=== PATIENT | female | born 1935 | race Caucasian/White ===

== ENCOUNTER → 2018-01-31 | Outpatient (CLI) | payer MEDICARE ==
[2016-08-09 05:18] VITALS: BP 119/72
[~2018-01-31] MED LIST: ASPI-630 PO; BUME1TAB PO; BUPR100T8 PO; CHOL10003 PO; CYAN500T17 PO; CYCL2DRO5 OS; DEXT15DR5 OP; DICL100G18 TP; DOCU-109 PO; FAMO20TA5 PO; FLUT9.9S NS; GUAI600T47 PO; LEVO25TA4 PO; LEVO500T59 PO; LIDO700A4 TP; MAG355OR11 PO; MAGN2400 PO; MAGN400T3 PO; POLY2500 PO; PRED1DRO OS; SPIR25TA5 PO
--- NOTE | 2018-01-31 14:00 | CARD ---
MR#: [id number] Date of Study: 01/31/2018 Ordering Physician: PATRICIA FLORES, Referring Physician: PATRICIA FLORES, Tech: LETI Mckeon APPROVED REPORT EXAM: Two-dimensional and M-mode echocardiogram with Doppler and color Doppler. Other Information Quality : Fair INDICATION Hx- Mitral Valve Endocarditis 2D DIMENSIONS Left Atrium(2D)3.9 (1.6-4.0cm)IVSd0.9 (0.7-1.1cm) Aortic Root(2D)1.9 (2.0-3.7cm)LVDd4.2 (3.9-5.9cm) LVOT Diameter1.8 (1.8-2.4cm)PWd1.1 (0.7-1.1cm) LVDs1.7 (2.5-4.0cm)SV69.1 ml Aortic Valve AoV Peak Rey.164.2cm/Viviana Peak GR.10.8mmHg LVOT Peak Rey.102.4cm/sAVA (VMAX)1.65cm2 Mitral Valve MV E Aoehrixo782.6cm/sMV E Peak Gr.163mmHg MV DECEL [id number] A Sglxajmc081.7cm/s E/A Ratio0.9 Tricuspid Valve TR P. Qhoflmsx916mt/sRAP BZWXIOUG4edUz TR Peak Gr.67yyIiYSBS77chJs LEFT VENTRICLE The left ventricle is normal size. There is normal left ventricular wall thickness. The left ventricu lar systolic function is normal and the ejection fraction is within normal range. The Ejection Fracti on is 60-65%. There is normal LV segmental wall motion. RIGHT VENTRICLE The right ventricle is normal size. There is normal right ventricular wall thickness. The right ventr icular systolic function is normal. ATRIA The left atrium size is normal. The right atrium size is normal. The interatrial septum is intact wit h no evidence for an atrial septal defect or patent foramen ovale as noted on 2-D or Doppler imaging. AORTIC VALVE The aortic valve is trileaflet. The aortic valve is mildly sclerotic. Doppler and Color Flow revealed trace aortic regurgitation. There is no significant aortic valvular stenosis. MITRAL VALVE The mitral valve is mildly thickened. Mitral annular calcification is mild. Mild rheumatic mitral zeina ve appearance. There is no mitral valve stenosis. Doppler and Color-flow revealed mild to moderate mi tral regurgitation. TRICUSPID VALVE Doppler and Color Flow revealed trace tricuspid regurgitation. There is no tricuspid valve stenosis. PULMONIC VALVE The pulmonic valve is not well visualized. Doppler and Color Flow revealed trace to mild pulmonic zeina vular regurgitation. There is no pulmonic valvular stenosis. GREAT VESSELS The aortic root is normal in size. PERICARDIAL EFFUSION There is no pleural effusion. There is no evidence of significant pericardial effusion. Critical Notification Critical Value: No <Conclusion> The left ventricular systolic function is normal and the ejection fraction is within normal range. Th e Ejection Fraction is 60-65%. The aortic valve is trileaflet. The aortic valve is mildly sclerotic. Doppler and Color-flow revealed mild to moderate mitral regurgitation. The mitral valve is mildly thickened. Mitral annular calcification is mild. Mild rheumatic mitral zeina ve appearance. Signed by : Patricia Flores, Electronically Approved : 01/31/2018 13:59:35
== END | disposition home or self-care (01) ==
LOC: ECHO 08:51
PROVIDERS: ATTEND Internal Medicine Cardiovascular Disease
DX: I34.0 Nonrheumatic mitral (valve) insufficiency (principal); I11.0 Hypertensive heart disease with heart failure; I50.9 Heart failure, unspecified; E11.9 Type 2 diabetes mellitus without complications; E78.5 Hyperlipidemia, unspecified; E78.00 Pure hypercholesterolemia, unspecified; E03.9 Hypothyroidism, unspecified; K21.9 Gastro-esophageal reflux disease without esophagitis
CPT/HCPCS: 93306

== ENCOUNTER → 2018-03-14 | Outpatient (CLI) | payer MEDICARE ==
[2016-08-09 05:18] VITALS: BP 119/72
--- NOTE | 2018-03-14 12:33 | RAD ---
MR#: [id number] Date of Study: 03/14/2018 Ordering Physician: TAMMI BONILLA, Referring Physician: PATRICIA MARSHALL, Tech: Maribel Hughes RDMS, RVT, RTR APPROVED REPORT Patient Location: OUT-PATIENT Laterality:Bilateral Indications Grayscale images of the right carotid bulb reveal moderate soft and mildly calcified plaque which weiss s not appear to be encroaching the lumen. Spectral waveforms and color Doppler do not reveal any sign ificant stenosis. A stent velocity criteria overall 0 to less than 50% stenosis. On the left grayscale images demonstrate mild intimal hyperplasia. No significant velocity accelerati on or deceleration is noted on spectral imaging. Bilateral vertebral velocities are antegrade. Bilateral ICA to CCA ratios are grossly within normal limits. Critical Notification Critical Value: No <Conclusion> Mild nonobstructive plaque in the left carotid bulb extending into the proximal ICA without any signi ficant stenosis by velocity criteria. Signed by : Patricia Marshall, Electronically Approved : 03/14/2018 12:32:02
== END | disposition home or self-care (01) ==
LOC: US 10:26
PROVIDERS: ATTEND Internal Medicine Cardiovascular Disease
DX: I65.22 Occlusion and stenosis of left carotid artery (principal); I11.0 Hypertensive heart disease with heart failure; I50.9 Heart failure, unspecified; E11.9 Type 2 diabetes mellitus without complications; E78.5 Hyperlipidemia, unspecified; E78.00 Pure hypercholesterolemia, unspecified; K21.9 Gastro-esophageal reflux disease without esophagitis; E03.9 Hypothyroidism, unspecified; Z86.73 Personal history of transient ischemic attack (TIA), and cerebral infarction without residual deficits; Z86.2 Personal history of diseases of the blood and blood-forming organs and certain disorders involving the immune mechanism
CPT/HCPCS: 93880

== ENCOUNTER 2018-10-18 14:18 | Emergency (ER) | payer MEDICARE ==
[~2018-10-18] VITALS: Ht 157.5 cm; Wt 65.3 kg
[2018-10-18 14:31] VITALS: BP 126/44
[2018-10-18] MEDS ORDERED: PROCHLORPERAZINE 10 MG/2 ML VIAL. IV ONE (15:00)
[2018-10-18] MEDS ORDERED: HYOSCYAMINE 0.125 MG TAB.RAPDIS PO ONE (15:00)
--- NOTE | 2018-10-18 15:05 | PHYS DOC ---
Past History Past Medical History: Cancer Additional Past Medical Histor: meningitis Past Surgical History: Hysterectomy, Knee Replacement, Spleenectomy, Other Additional Past Surgical Histo: feeding tube Smoking: Non-smoker Alcohol Use: Rarely Drug Use: None Adult General Chief Complaint Chief Complaint: NAUSEA/VOMITING/DIARRHEA HPI HPI Patient is a 83-year-old female who presents with mid upper abdominal pain since 21 September 2018. This is been intermittent. Sometimes associated with food. No specific association with fatty foods or milk. Some nausea, no vomiting , no diarrhea. There was a fever at the onset. Patient had an exacerbation of the pain but more in her right upper quadrant shortly before arriving today. That sharp discomfort lasted only a few seconds. There is no association with exertion. There is been no trauma. Patient notes that she's lost approximately 3 pounds of weight in this past month. Discomfort is mild to moderate.[] Review of Systems Review of Systems Constitutional: Denies fever or chills [] Eyes: Denies change in visual acuity, redness, or eye pain [] HENT: Denies nasal congestion or sore throat [] Respiratory: Denies cough or shortness of breath [] Cardiovascular: No chest pain or palpitations[] GI: See history of present illness[] : Denies dysuria or hematuria [] Musculoskeletal: Denies back pain or joint pain [] Integument: Denies rash or skin lesions [] Neurologic: Denies headache, focal weakness or sensory changes [] Endocrine: Denies polyuria or polydipsia [] All other systems were reviewed and found to be within normal limits, except as documented in this note. Current Medications Current Medications Current Medications Medications (Trade) Dose Ordered Sig/Yesenia Start Time Stop Time Status Last Admin Dose Admin Hyoscyamine (Anaspaz) 0.125 mg 1X ONCE 10/18/18 15:00 10/18/18 15:01 DC 10/18/18 15:01 0.125 MG Prochlorperazine Edisylate (Compazine) 5 mg 1X ONCE 10/18/18 15:00 10/18/18 15:01 DC 10/18/18 15:01 5 MG Allergies Allergies Allergies Coded Allergies Type Severity Reaction Last Updated Verified egg Allergy Intermediate 08/06/16 Yes shellfish derived Allergy Intermediate 08/06/16 Yes Penicillins Allergy Mild Anxiety 08/06/16 Yes Physical Exam Physical Exam Constitutional: Well developed, well nourished, no acute distress, non-toxic appearance. [] HENT: Normocephalic, atraumatic, bilateral external ears normal, oropharynx moist, no oral exudates, nose normal. [] Eyes: PERRLA, EOMI, conjunctiva normal, no discharge. [] Neck: Normal range of motion, no tenderness, supple, no stridor. [] Cardiovascular:Heart rate regular rhythm, no murmur [] Lungs & Thorax: Bilateral breath sounds clear to auscultation [] Abdomen: Bowel sounds normal, soft, mild epigastric tenderness, no rebound, no guarding, no rigidity, sits up without any difficulty, no McBurney's point tenderness, no Silver's sign, no masses, no pulsatile masses. [] Skin: Warm, dry, no erythema, no rash. [] Back: No tenderness, no CVA tenderness. [] Extremities: No tenderness, no cyanosis, no clubbing, ROM intact, no edema. [] Neurologic: Alert and oriented X 3, normal motor function, normal sensory function, no focal deficits noted. [] Psychologic: Affect normal, judgement normal, mood normal. [] Current Patient Data Vital Signs Vital Signs Date Time Temp Pulse Resp B/P (MAP) Pulse Ox O2 Delivery O2 Flow Rate FiO2 10/18/18 14:31 98.4 80 22 97 Room Air EKG EKG EKG shows a sinus rhythm at 71 bpm, left axis deviation, QTC of 411 ms, no ST elevation, no acute changes when compared with EKG of August 06, 2016. Interpreted by me at 1505[] Radiology/Procedures Radiology/Procedures PROCEDURE: ABDOMEN LTD Indication:nausea RUQ pain TECHNIQUE: Grayscale, color Doppler and spectral waveform is of the abdomen obtained. COMPARISON:CT abdomen pelvis from same day FINDINGS: Visualized pancreas is within normal limits. IVC is within normal limits. Diffusely stone filled gallbladder is seen with wall echo shadow complex. No pericholecystic fluid. Main portal vein is patent with hepatopedal flow. CBD measures 5 mm in diameter and is top normal in size for patient's age. Mild diffuse intrahepatic biliary duct dilation seen. Liver measures 14 cm in longest dimension and is normal in size and echogenicity. Right kidney measures 9.5 cm in length without hydronephrosis. IMPRESSION: 1. Completely stone filled gallbladder. If concern for cystic duct obstruction is high, please consider HIDA scan. 2. Mild diffuse intrahepatic biliary duct dilation. CBD is nondilated. EXAM: CT Abdomen and Pelvis without IV contrast CLINICAL HISTORY: Right and upper sided abdominal pain, nausea today. COMPARISON: CT chest abdomen pelvis 12/24/2014 TECHNIQUE: Helical CT of the abdomen and pelvis without intravenous contrast. Axial, coronal and sagittal reformatted images were generated. PQRS compliance statement - One or more of the following individualized dose reduction techniques were utilized for this study: 1. Automated exposure control 2. Adjustment of the mA and/or kV according to patient size 3. Use of iterative reconstruction technique FINDINGS: Lack of intravenous contrast limits evaluation of solid organs, vasculature, and lymph nodes. Lower chest: Prominently reticular opacities in the lower lobes likely scarring/atelectasis. Mild emphysematous changes are seen. 3-4 mm bilateral lung base nodules are seen, stable to prior CT 12/24/2014. Small hiatal hernia. Abdomen and Pelvis: No focal liver lesion. High density material within the gallbladder likely numerous gallstones. No definite wall thickening or pericholecystic fluid is seen. No definite intra or extra hepatic ductal dilatation is seen. 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 Adrenal glands and pancreas are unremarkable. No definite renal tract calculus. No focal renal lesion. No hydronephrosis. Diffuse bladder wall thickening with associated fat infiltration likely cystitis. Appendix is normal. No small or large bowel dilatation. Moderate colonic stool content. Tiny fat-containing periumbilical hernia. No abdominal or pelvic ascites. No abdominal or pelvic lymphadenopathy. Bones: Osseous structures are grossly unremarkable. Multilevel degenerative changes of the spine are seen. Diffusely decreased bone mineral density. Anterolisthesis of L4 on L5 is seen. IMPRESSION: Marked cholelithiasis without CT evidence for acute cholecystitis. Bladder wall thickening and associated fat infiltration may be seen with cystitis. This can be correlated with urinalysis. Moderate colonic stool content. No evidence for bowel obstruction.[] Course & Med Decision Making Course & Med Decision Making Pertinent Labs and Imaging studies reviewed. (See chart for details) ED course: Patient arrived, was placed in bed, and tolerated exam well. Due to her shellfish allergy she was given an oral water contrast which she tolerated well. She was transported to and from CT and ultrasound without any complications. After the return of the laboratory and imaging findings, these were discussed with her and her son-in-law both of whom voiced understanding. All questions were answered. Patient was discharged in improved condition. Medical decision making: Patient appears to have cholelithiasis that is symptomatic. No evidence of cholecystitis, no evidence of obstruction, no evidence of pancreatitis nor acute coronary syndrome. No evidence of oral intake intolerance. No evidence of pyelonephritis.[] Dragon Disclaimer Dragon Disclaimer This electronic medical record was generated, in whole or in part, using a voice recognition dictation system. Departure Departure: Impression: Primary Impression: Cholelithiasis Additional Impression: Urinary tract infection Disposition: HOME, SELF-CARE Condition: IMPROVED Referrals: CHRIST CHAVEZ MD (PCP) Follow-up in 2 days DANIEL LANDA MD GI specialist, call tomorrow to set follow up appointment RAMIRO CARSON MD Surgeon, call tomorrow to set follow up appointment Patient Instructions: Cholelithiasis, Urinary Tract Infection Additional Instructions: Follow-up with your primary care physician in 2 days. Call the GI specialist as well as ch surgeon for follow-up of your cholelithiasis. Return to the ER if worsening pain, unable to tolerate liquids, or any other concerns. Scripts Sulfamethoxazole/Trimethoprim (BACTRIM DS TABLET) 1 Each Tablet 1 TAB PO BID for urinary tract infection, #20 TAB Prov: AMY ROBISON DO 10/18/18 Ondansetron Hcl (ZOFRAN) 4 Mg Tablet 1 TAB PO Q6HRS for nausea or vomiting, #20 TAB Prov: AMY ROBISON DO 10/18/18 Hyoscyamine Sulfate (LEVSIN) 0.125 Mg Tablet 0.125 MG PO QID for abdominal pain/cramping, #30 TAB Prov: AMY ROBISON DO 10/18/18 Problem Qualifiers Primary Impression: Cholelithiasis Cholelithiasis location: gallbladder Cholecystitis presence: without cholecystitis Biliary obstruction: without biliary obstruction Qualified Codes: K80.20 - Calculus of gallbladder without cholecystitis without obstruction Additional Impression: Urinary tract infection Urinary tract infection type: site unspecified Hematuria presence: without hematuria Qualified Codes: N39.0 - Urinary tract infection, site not specified AMY ROBISON DO Oct 18, 2018 15:05
[2018-10-18 15:59] LABS: ALBUMIN 3.9 g/dL (3.4-5.0); ALBUMIN/GLOBULIN RATIO 1.1 (1.0-1.7); CALCIUM 9.8 mg/dL (8.5-10.1); CREATININE 1.3 mg/dL (0.6-1.0); GFR 39.3; TOTAL BILIRUBIN 0.3 mg/dL (0.2-1.0); TOTAL PROTEIN 7.5 g/dL (6.4-8.2)
[2018-10-18 16:04] LABS: BASO # 0.1 x10^3/uL (0.0-0.2); BASO % 1 % (0-3); EOS # 0.2 x10^3/uL (0.0-0.7); EOS % 4 % (0-3); HEMOGLOBIN 12.4 g/dL (12.0-15.5); LYMPH # 2.6 x10^3/uL (1.0-4.8); LYMPH % 50 % (24-48); MEAN CORPUSCULAR HEMOGLOBIN 29 pg (25-35); MEAN CORPUSCULAR HGB CONC 33 g/dL (31-37); MEAN CORPUSCULAR VOLUME 90 fL (79-100); MONO # 0.8 x10^3/uL (0.0-1.1); MONO % 15 % (0-9); NEUT # 1.6 x10^3uL (1.8-7.7); NEUT % 30 % (31-73); PLATELET COUNT 271 x10^3/uL (140-400); RED BLOOD COUNT 4.23 x10^6/uL (3.50-5.40); RED CELL DISTRIBUTION WIDTH 16.7 % (11.5-14.5); WHITE BLOOD COUNT 5.3 x10^3/uL (4.0-11.0)
--- NOTE | 2018-10-18 16:36 | RAD ---
Indication:nausea RUQ pain TECHNIQUE: Grayscale, color Doppler and spectral waveform is of the abdomen obtained. COMPARISON:CT abdomen pelvis from same day FINDINGS: Visualized pancreas is within normal limits. IVC is within normal limits. Diffusely stone filled gallbladder is seen with wall echo shadow complex. No pericholecystic fluid. Main portal vein is patent with hepatopedal flow. CBD measures 5 mm in diameter and is top normal in size for patient's age. Mild diffuse intrahepatic biliary duct dilation seen. Liver measures 14 cm in longest dimension and is normal in size and echogenicity. Right kidney measures 9.5 cm in length without hydronephrosis. IMPRESSION: 1. Completely stone filled gallbladder. If concern for cystic duct obstruction is high, please consider HIDA scan. 2. Mild diffuse intrahepatic biliary duct dilation. CBD is nondilated. Electronically signed by: Merritt Nobles DO (10/18/2018 4:33 PM) [facility]
--- NOTE | 2018-10-18 16:41 | RAD ---
EXAM: CT Abdomen and Pelvis without IV contrast CLINICAL HISTORY: Right and upper sided abdominal pain, nausea today. COMPARISON: CT chest abdomen pelvis 12/24/2014 TECHNIQUE: Helical CT of the abdomen and pelvis without intravenous contrast. Axial, coronal and sagittal reformatted images were generated. PQRS compliance statement - One or more of the following individualized dose reduction techniques were utilized for this study: 1. Automated exposure control 2. Adjustment of the mA and/or kV according to patient size 3. Use of iterative reconstruction technique FINDINGS: Lack of intravenous contrast limits evaluation of solid organs, vasculature, and lymph nodes. Lower chest: Prominently reticular opacities in the lower lobes likely scarring/atelectasis. Mild emphysematous changes are seen. 3-4 mm bilateral lung base nodules are seen, stable to prior CT 12/24/2014. Small hiatal hernia. Abdomen and Pelvis: No focal liver lesion. High density material within the gallbladder likely numerous gallstones. No definite wall thickening or pericholecystic fluid is seen. No definite intra or extra hepatic ductal dilatation is seen. 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 Adrenal glands and pancreas are unremarkable. No definite renal tract calculus. No focal renal lesion. No hydronephrosis. Diffuse bladder wall thickening with associated fat infiltration likely cystitis. Appendix is normal. No small or large bowel dilatation. Moderate colonic stool content. Tiny fat-containing periumbilical hernia. No abdominal or pelvic ascites. No abdominal or pelvic lymphadenopathy. Bones: Osseous structures are grossly unremarkable. Multilevel degenerative changes of the spine are seen. Diffusely decreased bone mineral density. Anterolisthesis of L4 on L5 is seen. IMPRESSION: Marked cholelithiasis without CT evidence for acute cholecystitis. Bladder wall thickening and associated fat infiltration may be seen with cystitis. This can be correlated with urinalysis. Moderate colonic stool content. No evidence for bowel obstruction. Electronically signed by: Seth Steele MD (10/18/2018 4:38 PM) [facility]
[2018-10-18 17:00] LABS: BILIRUBIN,URINE NEG (NEG); CLARITY,URINE CLOUDY; COLOR,URINE YELLOW; GLUCOSE,URINE NEG (NEG)
[2018-10-18 17:01] LABS: BACTERIA,URINE MOD /HPF (0-FEW); NITRITE,URINE POS (NEG); RBC,URINE 0 /HPF (0-2); SQUAMOUS EPITHELIAL CELL,UR FEW /LPF; UROBILINOGEN,URINE 1 mg/dL (0.2 mg/dL); WBC,URINE TNTC /HPF (0-4)
[2018-10-18] MEDS ORDERED: HYOS0.1264 PO (17:04)
[2018-10-18] MEDS ORDERED: ONDA4TAB7 PO (17:04)
[2018-10-18] MEDS ORDERED: SULF1TAB24 PO (17:04)
[2018-10-18 17:14] LABS: % ATYL 4 % (0-0); % BASOS 1 % (0-3); % EOS 1 % (0-5); % LYMPHS 43 % (24-48); % MONOS 13 % (0-10); % SEGS 38 % (35-66)
[2018-10-18 17:18] LABS: ACANTHOCYTES OCC; TARGET CELLS OCC
[2018-10-18 17:19] LABS: ANISOCYTOSIS SLIGHT; HYPOCHROMIA SLIGHT; PLT ESTIMATE ADEQUATE (ADEQUATE); POIKILOCYTOSIS MOD
--- NOTE | 2018-10-18 17:55 | EKG ---
[address] [address] Test Date: 2018-10-18 Test Time: 15:01:34 Pat Name: JACQUIE MERCADO Department: Room: Gender: F [employer]: ABHISHEK : [id number] Requested By: AMY ROBISON Order Number: [id number] Reading MD: Fabio Marshall MD Measurements Intervals [place] Rate: 71 P: 66 SD: 182 QRS: -34 QRSD: 84 T: 52 QT: 378 QTc: 411 Interpretive Statements SINUS RHYTHM ABNORMAL LEFT AXIS DEVIATION LEFT ANTERIOR FASCICULAR BLOCK Electronically Signed On 10-20-2018 16:32:52 CDT by Fabio Marshall MD
== END 2018-10-18 17:15 | disposition home or self-care (01) ==
LOC: ER 14:18
DX: K80.20 Calculus of gallbladder without cholecystitis without obstruction (principal); N39.0 Urinary tract infection, site not specified; K42.9 Umbilical hernia without obstruction or gangrene; Z90.710 Acquired absence of both cervix and uterus; Z90.81 Acquired absence of spleen; Z91.012 Allergy to eggs; Z88.0 Allergy status to penicillin; Z91.013 Allergy to seafood
CPT/HCPCS: 36415; 74176; 76705; 80053; 81001; 83690; 83880; 84484; 85007; 85025; 85610; 87086; 93005; 96374; 99284; J0780; 87186

== ENCOUNTER → 2020-03-11 | Outpatient (CLI) | payer MEDICARE ==
[~2020-03-11] MED LIST changes: -BUME1TAB PO; +BUME1TAB3 PO; +HYOS0.1264 PO; -MAGN2400 PO; +MAGN24003 PO; -MAGN400T3 PO; +MAGN400T5 PO; +ONDA4TAB7 PO; +SULF1TAB24 PO
--- NOTE | 2020-03-11 16:18 | CARD ---
MR#: [id number] Date of Study: 03/11/2020 Ordering Physician: PATRICIA MARSHALL, Referring Physician: PATRICIA MARSHALL, Tech: Jannie Jesus APPROVED REPORT EXAM: Two-dimensional and M-mode echocardiogram with Doppler and color Doppler. Other Information Quality : AverageHR: 67bpm INDICATION Mitral Valve Disease 2D DIMENSIONS Left Atrium(2D)3.0 (1.6-4.0cm)IVSd0.9 (0.7-1.1cm) Aortic Root(2D)2.4 (2.0-3.7cm)LVDd4.0 (3.9-5.9cm) LVOT Diameter1.8 (1.8-2.4cm)PWd1.0 (0.7-1.1cm) LVDs2.6 (2.5-4.0cm)FS (%) 34.4 % SV45.0 mlLVEF(%)64.1 (>50%) Aortic Valve AoV Peak Rey.144.6cm/sAoV VTI35.8cm AO Peak GR.8.4mmHgLVOT Peak Rey.93.2cm/s LVOT VTI 22.76cmAO Mean GR.5mmHg CHERYL (VMAX)1.09re9KRJ (VTI)1.67cm2 Mitral Valve MV E Rpzlwilu835.1cm/sMV E Peak Gr.171mmHg MV DECEL XUDX389fuAV A Lhtabxyu922.5cm/s MV E Mean Gr.3mmHgE/A Ratio0.8 Pulmonary Valve PV Peak Xxxrjufn43.7cm/sPV Peak Grad.4mmHg Tricuspid Valve TR P. Wsbcznwu689ua/sRAP KUAWCYIH0nzUf TR Peak Gr.81udCzVABL53jcLe Pulmonary Vein S1 Swmhfyha68.5cm/sD2 Ihaqfcmt20.0cm/s LEFT VENTRICLE The left ventricle is normal size. There is normal left ventricular wall thickness. The left ventricu lar systolic function is normal and the ejection fraction is within normal range. The Ejection Fracti on is 50-55%. There is normal LV segmental wall motion. Transmitral Doppler flow pattern is Grade I-a bnormal relaxation pattern. RIGHT VENTRICLE The right ventricle is normal size. There is normal right ventricular wall thickness. The right ventr icular systolic function is normal. ATRIA The left atrium size is normal. The right atrium size is normal. The interatrial septum is intact wit h no evidence for an atrial septal defect or patent foramen ovale as noted on 2-D or Doppler imaging. AORTIC VALVE The aortic valve is normal in structure and function. Doppler and Color Flow revealed no significant aortic regurgitation. There is no significant aortic valvular stenosis. Calculated aortic valve area is 1.9 cm2 with maximum pressure gradient of 9 mmHg and mean pressure gradient of 5 mmHg. MITRAL VALVE The mitral valve is thickened but opens well. There is no evidence of mitral valve prolapse. There is no mitral valve stenosis with a mean gradient of 3.04 mmHg. Doppler and Color-flow revealed moderate mitral regurgitation. TRICUSPID VALVE The tricuspid valve is normal in structure and function. Doppler and Color Flow revealed trace tricus pid regurgitation with an estimated PAP of 29 mmHg. There is no tricuspid valve stenosis. PULMONIC VALVE The pulmonic valve is not well visualized. Doppler and Color Flow revealed no pulmonic valvular regur gitation. There is no pulmonic valvular stenosis. GREAT VESSELS The aortic root is normal in size. The IVC is normal in size and collapses >50% with inspiration. PERICARDIAL EFFUSION There is no evidence of significant pericardial effusion. Critical Notification Critical Value: No <Conclusion> The left ventricular systolic function is normal and the ejection fraction is within normal range. Th e Ejection Fraction is 50-55%. There is normal LV segmental wall motion. Doppler and Color-flow revealed moderate mitral regurgitation. Signed by : Patricia Marshall, Electronically Approved : 03/11/2020 16:18:23
== END | disposition home or self-care (01) ==
LOC: ECHO 10:39
PROVIDERS: ATTEND Internal Medicine Cardiovascular Disease
DX: I34.0 Nonrheumatic mitral (valve) insufficiency (principal)
CPT/HCPCS: 93306

== ENCOUNTER → 2020-11-11 | Outpatient (CLI) | payer MEDICARE ==
--- NOTE | 2020-11-11 11:35 | RAD ---
MR#: [id number] Date of Study: 11/11/2020 Ordering Physician: PATRICIA MARSHALL, Referring Physician: PATRICIA MARSHALL, Tech: Queta Kwan Ashley, [facility] APPROVED REPORT Patient Location: OUT-PATIENT Laterality:Bilateral Indications Grayscale images of the bilateral carotid vasculature demonstrates mild intimal hyperplasia but no si gnificant plaque is noted. On the right side based on velocity criteria there is moderate stenosis i nvolving the distal internal carotid artery although overall based on lower diastolic velocities this appears to be less than 50%. Normal ICA to CCA ratios are noted. Normal antegrade vertebral veloci ties are noted. On the left side again there is mild to moderate stenosis based on velocity criteria in the mid inter nal carotid artery consistent with a 50 to 69% stenosis. The vertebral velocities are antegrade. No focal high-grade stenosis is identified otherwise with normal ICA to CCA ratios. Risk Factors PAD Smoking Doppler Spectral Velocity Analysis Right Left pCCA 116/20 cm/spCCA 106/26 cm/s mCCA 101/18 cm/smCCA 98/20 cm/s dCCA 80/16 cm/sdCCA 86/22 cm/s ECA 103/7 cm/sECA 83/7 cm/s pICA 963/21 cm/spICA 116/35 cm/s Ken 101/37 cm/smICA 133/29 cm/s dICA 151/29 cm/sdICA 132/29 cm/s Vert. 86/21 cm/sVert. 53/14 cm/s ICA/CCA 8.30ICA/CCA 1.25 Critical Notification Critical Value: No <Conclusion> 1. Moderate bilateral disease at 50 to 69% based on velocity criteria. Overall no significant steno sis. Signed by : Patricia Marshall, Electronically Approved : 11/11/2020 11:34:57
--- NOTE | 2020-11-11 11:55 | CARD ---
MR#: [id number] Date of Study: 11/11/2020 Ordering Physician: PATRICIA FLORES, Referring Physician: PATRICIA FLORES, Tech: Danica Pitts [facility] APPROVED REPORT EXAM: Two-dimensional and M-mode echocardiogram with Doppler and color Doppler. Other Information Quality : Good INDICATION Mitral Vavle Regurgitation 2D DIMENSIONS RVDd2.8 (2.9-3.5cm)Left Atrium(2D)3.4 (1.6-4.0cm) IVSd0.9 (0.7-1.1cm)Aortic Root(2D)2.4 (2.0-3.7cm) LVDd3.7 (3.9-5.9cm)LVOT Diameter1.9 (1.8-2.4cm) PWd0.8 (0.7-1.1cm)LVDs1.9 (2.5-4.0cm) FS (%) 30.0 %SV46.3 ml LVEF(%)60.0 (>50%) Aortic Valve AoV Peak Rey.171.1cm/sAoV VTI33.5cm AO Peak GR.11.7mmHgLVOT Peak Rey.105.7cm/s LVOT VTI 22.32cmAO Mean GR.7mmHg CHERYL (VMAX)1.32is6QFU (VTI)1.86cm2 Mitral Valve MV E Rmsyxprq963.9cm/sMV DECEL UNGA378tj MV A Nrzeisad286.7cm/sE/A Ratio0.9 Tricuspid Valve TR P. Osdxfwpr908kn/sRAP IJLJACKF3hcCv TR Peak Gr.28xlKmWSJG53lqQb Pulmonary Vein S1 Vfxdsnis499.7cm/sD2 Tooaebkd75.0cm/s LEFT VENTRICLE The left ventricle is normal size. There is normal left ventricular wall thickness. The left ventricu lar systolic function is normal. The Ejection Fraction is 55-60%. There is normal LV segmental wall m otion. Transmitral Doppler flow pattern is Grade I-abnormal relaxation pattern. RIGHT VENTRICLE The right ventricle is normal size. The right ventricular systolic function is normal. ATRIA The left atrium size is normal. The right atrium size is normal. The interatrial septum is intact wit h no evidence for an atrial septal defect or patent foramen ovale as noted on 2-D or Doppler imaging. AORTIC VALVE The aortic valve is calcified but opens well. Doppler and Color Flow revealed no significant aortic r egurgitation. There is no significant aortic valvular stenosis. MITRAL VALVE The mitral valve is normal in structure and function. There is no evidence of mitral valve prolapse. There is no mitral valve stenosis. Doppler and Color-flow revealed moderate mitral regurgitation. TRICUSPID VALVE The tricuspid valve is normal in structure and function. Doppler and Color Flow revealed trace to mil d tricuspid regurgitation. There is mild pulmonary hypertension. The PA pressure was estimated at 36 mmHg. There is no tricuspid valve stenosis. PULMONIC VALVE The pulmonic valve is not well visualized. Doppler and Color Flow revealed no pulmonic valvular regur gitation. There is no pulmonic valvular stenosis. GREAT VESSELS The aortic root is normal in size. PERICARDIAL EFFUSION There is no evidence of significant pericardial effusion. Critical Notification Critical Value: No <Conclusion> The left ventricular systolic function is normal. The Ejection Fraction is 55-60%. There is normal LV segmental wall motion. Transmitral Doppler flow pattern is Grade I-abnormal relaxation pattern. Moderate mitral regurgitation. Trace to mild tricuspid regurgitation. The PA pressure was estimated at 36 mmHg. There is no evidence of significant pericardial effusion. Signed by : Saud Hernandez, Electronically Approved : 11/11/2020 11:54:30
== END ==
LOC: ECHO 09:09
PROVIDERS: ATTEND Internal Medicine Cardiovascular Disease
DX: I65.23 Occlusion and stenosis of bilateral carotid arteries (principal); I73.9 Peripheral vascular disease, unspecified
CPT/HCPCS: 93306; 93880

== ENCOUNTER → 2021-01-14 | Outpatient (CLI) | payer MEDICARE ==
[~2021-01-14] MED LIST changes: +ACETAMINOPHEN 325 MG TABLET PO PRN; +diphenhydrAMINE ORAL ELIXIR 12.5 MG/5 ML ML PO PRN
[2021-01-14 11:09] LABS: HEMATOCRIT 21.5 % (36.0-47.0)
[2021-01-14 11:18] LABS: HEMOGLOBIN 6.3 g/dL (12.0-15.5)
[2021-01-14 16:05] VITALS: BP 124/62
[2021-01-14 16:35] VITALS: BP 119/61
--- NOTE | 2021-01-14 16:39 | NUR ---
PATIENT ARRIVED TO THE UNIT VIA AMBULATION TO ROOM 125 ACCOMPANIED BY HER DAUGHTER. PATIENT IS ALERT AND ORIENTED. VS ARE WNL. BLOOD TRANSFUSION STARTED AT 1620. TUBING WAS PRIMED WITH NORMAL SALINE AND THEN PRIMED WITH BLOOD. TRANSFUSION STARTED AT 75 ML/HRS. PATIENT WAS MONITORED CLOSELY BY 15 MINS. NO REACTION WAS NOTED AT THIS TIME SO WILL INCREASE INFUSION RATE TO 150MLS/HR AND CONTINUE TO MONITOR PATIENT.
[2021-01-14 17:35] VITALS: BP 119/63
[2021-01-14 18:35] VITALS: BP 124/68
--- NOTE | 2021-01-14 19:11 | NUR ---
TRANSFUSION WAS COMPLETED WITH NO COMPLICATIONS OR REACTIONS NOTED. IV WAS REMOVED. PATIENT LEFT THE UNIT VIA AMBULATION ACCOMPANIED BY HER DAUGHTER.
== END | disposition home or self-care (01) ==
LOC: LAB 10:12
PROVIDERS: ATTEND Specialist
DX: D64.9 Anemia, unspecified (principal); E03.9 Hypothyroidism, unspecified
CPT/HCPCS: 36415; 36430; 85014; 85018; 86850; 86900; 86901; 86920; P9016

== ENCOUNTER → 2021-05-01 | Outpatient (CLI) | payer MEDICARE, BC ==
[2021-01-14 18:35] VITALS: BP 124/68
[~2021-05-01] MED LIST changes: -ACETAMINOPHEN 325 MG TABLET PO PRN; -diphenhydrAMINE ORAL ELIXIR 12.5 MG/5 ML ML PO PRN
--- NOTE | 2021-05-02 00:17 | RAD ---
EXAM: AP, lateral and sunrise views of the right knee. DATE: 05/01/2021 2:36 PM INDICATION: Reason: CHRONIC RIGHT KNEE PAIN / Spl. Instructions: / History: COMPARISON: No Prior FINDINGS: No acute fracture or dislocation. Small joint effusion. Moderate to severe medial compartment joint s pace narrowing with small osteophytes. IMPRESSION: 1. No acute fracture or dislocation. 2. Severe right knee joint osteoarthritis. 3. Small joint effusion. Electronically signed by: Seth Steele MD (05/02/2021 12:15 AM) PROSPER
== END ==
LOC: RAD 14:24
PROVIDERS: ATTEND Specialist
DX: M17.11 Unilateral primary osteoarthritis, right knee (principal); M25.461 Effusion, right knee
CPT/HCPCS: 73562

== ENCOUNTER → 2021-11-03 | Outpatient (CLI) | payer MEDICARE ==
[2021-01-14 18:35] VITALS: BP 124/68
[~2021-11-03] MED LIST changes: +BUPR100T16 PO; -BUPR100T8 PO; +MAGN400T48 PO; -MAGN400T5 PO
--- NOTE | 2021-11-03 15:51 | CARD ---
MR#: [id number] Date of Study: 11/03/2021 Ordering Physician: PATRICIA FLORES, Referring Physician: PATRICIA FLORES, Tech: Rasheed Gooden [facility] APPROVED REPORT EXAM: Two-dimensional and M-mode echocardiogram with Doppler and color Doppler. Other Information Quality : GoodHR: 80bpm Rhythm : NSR INDICATION Murmur PAD 2D DIMENSIONS Left Atrium(2D)3.7 (1.6-4.0cm)IVSd0.9 (0.7-1.1cm) Aortic Root(2D)2.3 (2.0-3.7cm)LVDd4.0 (3.9-5.9cm) LVOT Diameter1.8 (1.8-2.4cm)PWd0.9 (0.7-1.1cm) LA Vupzrh60 (18-58mL)LVDs2.3 (2.5-4.0cm) FS (%) 42.9 %SV53.4 ml LVEF(%)74.5 (>50%) Aortic Valve AoV Peak Rey.146.5cm/sAoV VTI31.9cm AO Peak GR.8.6mmHgLVOT Peak Rey.110.1cm/s LVOT VTI 21.62cmAO Mean GR.5mmHg CHERYL (VMAX)1.08na5MUE (VTI)1.64cm2 Mitral Valve MV E Dwpruozs82.2cm/sMV E Peak Gr.9mmHg MV DECEL HCJM506pjCV A Yysxvdid589.0cm/s MV E Mean Gr.3mmHgE/A Ratio0.7 Pulmonary Valve PV Peak Xvsbpnng267.7cm/sPV Peak Grad.4mmHg Tricuspid Valve TR P. Edfruisc613td/sTR Peak Gr.20mmHg Pulmonary Vein S1 Ohylvils81.9cm/sD2 Dqnxgpwj84.3cm/s LEFT VENTRICLE The left ventricle is normal size. There is normal left ventricular wall thickness. The left ventricu lar systolic function is normal. The ejection fraction is estimated at 55-60%. There is normal LV seg mental wall motion. Transmitral Doppler flow pattern is Grade I-abnormal relaxation pattern. No left ventricle thrombus noted on this study. There is no ventricular septal defect visualized. There is no left ventricular aneurysm. There is no mass noted in the left ventricle. RIGHT VENTRICLE The right ventricle is normal size. There is normal right ventricular wall thickness. The right ventr icular systolic function is normal. ATRIA The left atrium is moderately dilated. The right atrium size is normal. The interatrial septum is int act with no evidence for an atrial septal defect or patent foramen ovale as noted on 2-D or Doppler i maging. AORTIC VALVE The aortic valve is normal in structure and function. Doppler and Color Flow revealed no significant aortic regurgitation. There is no significant aortic valvular stenosis. There is no aortic valvular v egetation. MITRAL VALVE The mitral valve is thickened but opens well. There is no evidence of mitral valve prolapse. There is no mitral valve stenosis. Calculated mitral valve area is 1.4 cm2 with maximum pressure gradient of 9 mmHg and mean pressure gradient of 4 mmHg. Doppler and Color-flow revealed moderate mitral regurgit ation. TRICUSPID VALVE The tricuspid valve is normal in structure and function. Doppler and Color Flow revealed trace tricus pid regurgitation. The PA pressure was estimated at 25 mmHg. There is no tricuspid valve prolapse or vegetation. There is no tricuspid valve stenosis. PULMONIC VALVE The pulmonary valve is normal in structure and function. Doppler and Color Flow revealed no pulmonic valvular regurgitation. There is no pulmonic valvular stenosis. GREAT VESSELS The aortic root is normal in size. The ascending aorta is normal in size. The pulmonary artery is nor mal. The IVC is normal in size and collapses >50% with inspiration. PERICARDIAL EFFUSION There is no pleural effusion. There is no evidence of significant pericardial effusion. Critical Notification Critical Value: No <Conclusion> The left ventricular systolic function is normal. The ejection fraction is estimated at 55-60%. There is normal LV segmental wall motion. Transmitral Doppler flow pattern is Grade I-abnormal relaxation pattern. Moderate mitral regurgitation. Trace tricuspid regurgitation. The PA pressure was estimated at 25 mmHg. There is no evidence of significant pericardial effusion. Signed by : Saud Hernandez, Electronically Approved : 11/03/2021 15:51:00
--- NOTE | 2021-11-07 17:06 | RAD ---
MR#: [id number] Date of Study: 11/03/2021 Ordering Physician: PATRICIA FLORES, Referring Physician: PATRICIA FLORES, Tech: Queta Kwan RVT,JENNY APPROVED REPORT Patient Location: OUT-PATIENT Laterality:Bilateral Indications CVA/TIA: Risk Factors Smoking Doppler Spectral Velocity Analysis Right Left pCCA 99/12 cm/spCCA 75/15 cm/s mCCA 86/13 cm/smCCA 75/16 cm/s dCCA 74/11 cm/sdCCA 73/21 cm/s ECA 99/9 cm/sECA 98/7 cm/s pICA 76/20 cm/spICA 61/20 cm/s Ken 89/25 cm/smICA 104/30 cm/s dICA 101/26 cm/sdICA 93/26 cm/s Vert. 61/14 cm/sVert. 41/10 cm/s ICA/CCA 1.02ICA/CCA 1.39 Critical Notification Critical Value: No <Conclusion> FINDINGS Grayscale images of extracranial carotid arteries bilaterally showed mild diffuse atherosclerosis. S pectral waveform and color duplex analysis showed normal velocities bilaterally suggestive of 0 to le ss than 50% stenosis. The ICA to CCA ratio is very normal bilaterally. The vertebral arteries bilat erally showed antegrade flow with normal velocities. No significant carotid artery stenosis was note d. CONCLUSIONS Carotid arterial duplex scan did not show any significant carotid artery stenosis. Signed by : Saud Hernandez, Electronically Approved : 11/07/2021 17:06:40
== END ==
LOC: ECHO 09:38
PROVIDERS: ATTEND Internal Medicine Cardiovascular Disease
DX: I65.23 Occlusion and stenosis of bilateral carotid arteries (principal); I34.0 Nonrheumatic mitral (valve) insufficiency; Z86.73 Personal history of transient ischemic attack (TIA), and cerebral infarction without residual deficits
CPT/HCPCS: 93306; 93880